=== PATIENT | male | born 1980 | race American Indian/Alaskan Native ===

== ENCOUNTER 2016-12-16 10:02 | Emergency (ER) | payer OTHER ==
[2016-12-16 10:11] VITALS: RESP 18; TEMP 98.3; O2SAT 97
--- NOTE | 2016-12-16 10:56 | C.PDOC ---
History Of Present Illness 36 yr old male presents to the ER with complaints of new onset of neck pain for the past 2 days. Patient states the pain started after shoveling snow, states "felt a pinch". Patient states the pain is localized and is unable to turn his neck left or right. Patient denies history of chronic neck pain, chest pain, vomiting, back pain, weakness or numbness. Patient states has not tried any medicine for the pain. NEW ONSET NECK PAIN X 2 DAYS. ONSET AFTER SHOVELING SNOW, "FELT A PINCH" WHILE I WAS SHOVELING". CHARLI AVILA CHRONIC NECK PAIN. LOCALIZED NECK, UNABLE TO FULL TURN NECK LEFT/RIGHT. NO ASSOC WEAK NUMB, DIRECT TRAUMA. NO MEDS TRIED EXAM MILD DIST NONTOXIC NECK +MOD TORTICOLLIS W LIMITED LAT ROTATION B/L; DIFFUSE PARACERV SPASM W LOCAL TEND; NO DEFORM BACK +SPASM R UPPER BACK W REPRODUC PAIN NEURO INTACT Time Seen by Provider: 12/16/16 10:32 Chief Complaint (Nursing): Upper Extremity Problem/Injury History Per: Patient History/Exam Limitations: no limitations Onset/Duration Of Symptoms: Days (2) Current Symptoms Are (Timing): Still Present Past Medical History Reviewed: Historical Data, Nursing Documentation, Vital Signs Vital Signs: Last Vital Signs Temp 98.3 F 12/16/16 10:09 Pulse 68 12/16/16 11:18 Resp 18 12/16/16 11:18 BP 139/68 12/16/16 11:18 Pulse Ox 97 12/16/16 11:18 Family History: States: No Known Family Hx - Social History Hx Alcohol Use: No Hx Substance Use: No - Immunization History Hx Tetanus Toxoid Vaccination: No Hx Influenza Vaccination: No Hx Pneumococcal Vaccination: No Review Of Systems Except As Marked, All Systems Reviewed And Found Negative. Cardiovascular: Negative for: Chest Pain Gastrointestinal: Negative for: Vomiting Musculoskeletal: Positive for: Neck Pain. Negative for: Back Pain Neurological: Negative for: Weakness, Numbness Physical Exam - Physical Exam Appears: Non-toxic, In Acute Distress (Mild) Skin: Warm, Dry Head: Atraumatic, Normacephalic, No Swelling Eye(s): bilateral: Normal Inspection, PERRL, EOMI Neck: Paracervical Tenderness (Diffuse paracervical spasm with local tenderness) , Other (moderate torticollis with limited lateral rotation bilaterally. ) Chest: Symmetrical, No Tenderness Cardiovascular: Rhythm Regular, No Murmur Back: No CVA Tenderness, Muscle Spasm (right upper back with reproducible pain ) Extremity: Normal ROM, No Swelling Neurological/Psych: Oriented x3, Normal Speech, Normal Motor ED Course And Treatment O2 Sat by Pulse Oximetry: 97 Medical Decision Making Medical Decision Making: PLAN: * Flexril PO * Toradol IM Disposition Counseled Patient/Family Regarding: Diagnosis, Need For Followup, Rx Given - Disposition Referrals: YOUR,PMD [Other] Disposition: HOME/ ROUTINE Disposition Time: 10:55 Condition: GOOD Prescriptions: Cyclobenzaprine [Flexeril] 10 mg PO TID #15 tab Naproxen 500 mg PO BID #30 tab Acetaminophen/Codeine [Tylenol/Codeine 300 MG/30 MG] 2 tab PO Q6H #20 tab Instructions: Cervical Sprain (ED) Forms: Work Excuse - Clinical Impression Clinical Impression: Torticollis, acute - Scribe Statement The provider has reviewed the documentation as recorded by the Verito Villarreal Provider Attestation: All medical record entries made by the Verito were at my direction and personally dictated by me. I have reviewed the chart and agree that the record accurately reflects my personal performance of the history, physical exam, medical decision making, and the department course for this patient. I have also personally directed, reviewed, and agree with the discharge instructions and disposition.
[2016-12-16 11:19] VITALS: BP 139/68; PULSE 68
== END 2016-12-16 11:19 | disposition home or self-care (01) ==
LOC: C.ER 10:02
DX: M43.6 Torticollis (principal)

== ENCOUNTER 2017-07-16 09:57 | Emergency (ER) | payer OTHER ==
[2017-07-16 10:04] VITALS: TEMP 97.9
[2017-07-16] MEDS ORDERED: Sodium Chloride 0.9% 1,000 ML IV ONE (10:33)
--- NOTE | 2017-07-16 10:36 | C.PDOC ---
History Of Present Illness 36 year old male with history of constipation presents to the ED with generalized abdominal pain since 04:00 this morning. Patient states feeling nauseous in the morning but did not vomit, does not have an exact date for his last bowel movement for thinks it was several days ago. Patient denies taking any medications, medical issues, fever, vomit, or known sick contacts. Time Seen by Provider: 07/16/17 10:09 Chief Complaint (Nursing): Abdominal Pain History Per: Patient History/Exam Limitations: no limitations Onset/Duration Of Symptoms: Hrs Current Symptoms Are (Timing): Still Present Location Of Pain/Discomfort: Diffuse Quality Of Discomfort: "Pain" Associated Symptoms: Nausea, Constipation. denies: Fever, Vomiting, Diarrhea, Back Pain Last Bowel Movement: Days Ago Recent travel outside of the [place]: No Additional History Per: Patient Past Medical History Reviewed: Historical Data, Nursing Documentation, Vital Signs Vital Signs: Last Vital Signs Temp 97.9 F 07/16/17 10:00 Pulse 61 07/16/17 11:31 Resp 17 07/16/17 11:31 BP 116/71 07/16/17 11:31 Pulse Ox 100 07/16/17 11:53 - Medical History PMH: No Chronic Diseases Surgical History: No Surg Hx Family History: States: Unknown Family Hx - Social History Hx Alcohol Use: Yes Hx Substance Use: Yes - Immunization History Hx Tetanus Toxoid Vaccination: No Hx Influenza Vaccination: No Hx Pneumococcal Vaccination: No Review Of Systems Constitutional: Negative for: Fever, Chills Gastrointestinal: Positive for: Nausea, Abdominal Pain (generalized), Constipation. Negative for: Vomiting, Diarrhea Musculoskeletal: Negative for: Back Pain Physical Exam - Physical Exam Appears: Non-toxic, No Acute Distress Skin: Normal Color, Warm, Dry Head: Atraumatic, Normacephalic Oral Mucosa: Moist Gastrointestinal/Abdominal: Soft, Tenderness (generalized), No Guarding, No Rebound Back: Normal Inspection Neurological/Psych: Oriented x3, Normal Speech, Normal Cognition Gait: Steady ED Course And Treatment - Laboratory Results Result Diagrams: 07/16/17 10:45 07/16/17 10:45 O2 Sat by Pulse Oximetry: 100 (On RA) Pulse Ox Interpretation: Normal - Other Rad obstruction series X-Ray: Interpreted by Me Interpretation: no obstruction, +constipation Reassessment Condition: Improved (on re-eval pain completely resolved, abdomen soft) Medical Decision Making Medical Decision Making: Impression : 36 y/o male with prior hx of constipation presents with generalized abdominal pain. Plan: * Blood work and UA ordered * X-Ray obstructive series ordered * IV fluids, Toradol 30 mg IVP, Zofran 4 mg IVP administred Reassess: Patient's abdominal pain was resolved, was instructed to follow directions for proper care, take 2 softeners daily and follow up with PMD for further management. Disposition Counseled Patient/Family Regarding: Studies Performed, Diagnosis, Need For Followup, Rx Given - Disposition Referrals: Non [facility] Provider, [Non-Staff] - Disposition: HOME/ ROUTINE Disposition Time: 11:27 Condition: STABLE Additional Instructions: FOLLOW UP WITH PMD ON TUESDAY FOR RE-EVALUATION. DRINK PLENTY OF FLUIDS AND EAT FIBER RICH FOOD. IF SYMPTOMS GET WORSE OR ANY NEW CONCERNING SYMPTOMS DEVELOP RETURN TO ED. 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 - Scribe Statement The provider has reviewed the documentation as recorded by the Scribe Osmar Johnston All medical record entries made by the Scribe were at my direction and personally dictated by me. I have reviewed the chart and agree that the record accurately reflects my personal performance of the history, physical exam, medical decision making, and the department course for this patient. I have also personally directed, reviewed, and agree with the discharge instructions and disposition.
[2017-07-16] MEDS ORDERED: Sodium Chloride 0.9% 1,000 ML ONE (10:41)
[2017-07-16 10:50] LABS: BASO # 0.1 K/uL (0.0-0.2); BASO % 0.6 % (0.0-2.0); EOS % 0.3 % (0.0-4.0); HEMATOCRIT 39.6 % (35.0-51.0); LYMPH # 0.9 K/uL (1.0-4.3); LYMPH % 11.2 % (20.0-40.0); MEAN CELL VOLUME 86.5 fL (80.0-94.0); MEAN CORPUSCULAR HEMOGLOBIN 28.6 pg (27.0-31.0); MEAN PLATELET VOLUME 9.4 fL (7.2-11.7); MONO # 0.9 K/uL (0.0-0.8); MONO % 11.7 % (0.0-10.0); RED CELL DISTRIBUTION WIDTH 13.5 % (11.5-14.5)
[2017-07-16 11:01] LABS: CHLORIDE 100 mmol/L (98-107); SODIUM 136 mmol/L (132-148)
[2017-07-16 11:03] LABS: BILIRUBIN,TOTAL 0.7 mg/dL (0.2-1.3); GFR AFRICAN-AMERICAN > 60
[2017-07-16 11:04] LABS: ALB/GLOB RATIO 1.3 (1.0-2.1); ALKALINE PHOSPHATASE 64 U/L (38-126); ALT/SGPT 44 U/L (21-72); AST/SGOT 38 U/L (17-59); BLOOD UREA NITROGEN 13 mg/dL (9-20); CALCIUM 8.9 mg/dl (8.6-10.4); CARBON DIOXIDE 26 mmol/L (22-30); GLUCOSE,RANDOM 92 mg/dL (75-110); TOTAL PROTEIN 7.5 g/dL (6.3-8.3)
[2017-07-16 11:32] VITALS: PULSE 61; RESP 17
[2017-07-16 11:33] VITALS: O2SAT 100
[2017-07-16 11:53] VITALS: BP 116/71
--- NOTE | 2017-07-16 14:28 | RAD ---
PROCEDURE: Radiographs of the chest and abdomen (obstructive series) HISTORY: abd pain COMPARISON: No prior. TECHNIQUE: AP radiograph of the chest, with upright and supine radiographs of the abdomen. FINDINGS: CHEST: Lungs: Clear. Cardiovascular: Normal size heart. No pulmonary vascular congestion. Pleura: No pleural fluid. No pneumothorax. Other findings: None. ABDOMEN AND PELVIS: Bowel: Unremarkable bowel gas pattern. No evidence of mechanical obstruction. Free air: None. Bones: Unremarkable. Other findings: None. IMPRESSION: Unremarkable radiographs of chest and abdomen. No evidence of mechanical bowel obstruction.
== END 2017-07-16 11:53 | disposition home or self-care (01) ==
LOC: C.ER 09:57
DX: K59.00 Constipation, unspecified (principal); R10.84 Generalized abdominal pain
CPT/HCPCS: 74022; 80053; 83690; 85025; 96361; 96374; 96375; 99284; J1885; J2405; J7040

== ENCOUNTER 2018-04-28 00:13 | Emergency (ER) | payer MEDICAID ==
[2018-04-28 00:26] VITALS: O2SAT 97
--- NOTE | 2018-04-28 00:47 | C.PDOC ---
History Of Present Illness 37 year old male presents to the ER with a complaint of constipation for the past 2 days. Patient states he feels like he needs to go the bathroom. Denies nausea, vomiting, or abdominal pain. Chief Complaint (Nursing): Abdominal Pain History Per: Patient History/Exam Limitations: no limitations Onset/Duration Of Symptoms: Days Current Symptoms Are (Timing): Still Present Radiation Of Pain To:: None Associated Symptoms: Constipation. denies: Nausea, Vomiting Exacerbating Factors: None Alleviating Factors: None Recent travel outside of the [place]: No Past Medical History Reviewed: Historical Data, Nursing Documentation, Vital Signs Vital Signs: Last Vital Signs Temp 98.7 F 04/28/18 00:20 Pulse 66 04/28/18 00:20 Resp 18 04/28/18 00:20 BP 151/89 H 04/28/18 00:20 Pulse Ox 97 04/28/18 00:53 Family History: States: Unknown Family Hx - Social History Hx Alcohol Use: Yes Hx Substance Use: Yes - Immunization History Hx Tetanus Toxoid Vaccination: No Hx Influenza Vaccination: No Hx Pneumococcal Vaccination: No Review Of Systems Constitutional: Negative for: Fever, Chills Cardiovascular: Negative for: Chest Pain, Palpitations Respiratory: Negative for: Cough, Shortness of Breath Gastrointestinal: Positive for: Constipation. Negative for: Nausea, Vomiting Genitourinary: Negative for: Dysuria, Hematuria Neurological: Negative for: Weakness, Numbness Physical Exam - Physical Exam Appears: Non-toxic Skin: Normal Color, Warm, Dry Head: Atraumatic, Normacephalic Eye(s): bilateral: Normal Inspection Oral Mucosa: Moist Neck: Normal, Supple Chest: Symmetrical, No Tenderness Cardiovascular: Rhythm Regular Respiratory: Normal Breath Sounds, No Rales, No Rhonchi, No Wheezing Gastrointestinal/Abdominal: Soft, No Tenderness Rectal: Other (Empty rectal vault) Back: No CVA Tenderness, No Vertebral Tenderness, No Paraspinal Tenderness Neurological/Psych: Oriented x3, Normal Speech ED Course And Treatment O2 Sat by Pulse Oximetry: 97 (Room air) Pulse Ox Interpretation: Normal Progress Note: Fleet enema administered. Disposition Counseled Patient/Family Regarding: Diagnosis - Disposition Referrals: [facility] [Outside] Disposition: HOME/ ROUTINE Disposition Time: 01:45 Condition: STABLE Prescriptions: Docusate Sodium [Dulcolax Stool Softener] 100 mg PO DAILY #7 capsule Forms: [employer] (Canadian) - POA Present On Arrival: None - Clinical Impression Clinical Impression: Constipation - Scribe Statement The provider has reviewed the documentation as recorded by the Scribe Aron Noe All medical record entries made by the Scribe were at my direction and personally dictated by me. I have reviewed the chart and agree that the record accurately reflects my personal performance of the history, physical exam, medical decision making, and the department course for this patient. I have also personally directed, reviewed, and agree with the discharge instructions and disposition.
[2018-04-28] MEDS ORDERED: Bisacodyl 5mg EC Tab PO STA (01:28)
[2018-04-28 02:17] VITALS: BP 138/82; PULSE 70; RESP 20; TEMP 98.2
== END 2018-04-28 02:38 | disposition home or self-care (01) ==
LOC: C.ER 00:13
DX: K59.00 Constipation, unspecified (principal)